=== PATIENT | male | born 1950 | race Caucasian/White ===

== ENCOUNTER 2016-08-26 18:59 | Emergency (ER) | payer BC, MEDICARE ==
--- NOTE | ~2016-08-26 | ER ---
PATIENT'S NAME: SUSANA [facility] AGE: 65 Y [address] ROOM: [place] [id number] LOCATION: [facility] ADMIT DATE: 08/26/2016 ER/Outpatient Report DISCHARGE DATE: FAMILY PHYSICIAN: Cordell Mccoy MD ATTENDING PHYSICIAN: Sesar Del Rosario TIME OF ARRIVAL: 1905 hours. TIME OF EVALUATION: 1905 hours. CHIEF COMPLAINT: Nosebleed. HISTORY OF PRESENT ILLNESS: The patient is a 65-year-old male who presents to the emergency department today with a chief complaint of nosebleed. He reports this started 15 minutes prior to arrival. It is from his left naris. He was discharged from the hospital about 2 weeks ago. He had been on some blood thinners during that time. He reports he sneezed and started bleeding from his nose. He denies any fevers or chills. No nausea or vomiting. No diarrhea or constipation. No chest pain. No shortness of breath. No pain. PAST MEDICAL HISTORY: Hypertension, asthma, recent pneumonia, and influenza A. PAST SURGICAL HISTORY: None reported. SOCIAL HISTORY: The patient denies any tobacco, alcohol, or illicit drug use. ALLERGIES: PENICILLIN. MEDICATIONS: 1. Symbicort. 2. Diovan. REVIEW OF SYSTEMS: All systems are reviewed by myself are negative with the exception of those discussed in HPI and past medical history. PHYSICAL EXAMINATION: PATIENT'S NAME: MALIK MEZA [facility] AGE: 65 Y [address] ROOM: [place] [address] LOCATION: [facility] ADMIT DATE: 08/26/2016 ER/Outpatient Report DISCHARGE DATE: FAMILY PHYSICIAN: Cordell Mccoy MD ATTENDING PHYSICIAN: Sesar Del Rosario VITAL SIGNS: Weight 112.5 kg, blood pressure 177/91, pulse 91, respiratory rate 18, temperature 97.9, and oxygen saturation 91% on room air. GENERAL: The patient is a 65-year-old male, appears stated age, in no acute distress at this time. HEENT: Head: Normocephalic, atraumatic. Pupils are equal, round, and reactive to light. The left naris with a small amount of bleeding noted with dried clots noted. Oropharynx is clear. There is no posterior pharyngeal bleed. NECK: Supple. There is no nuchal rigidity. CARDIOVASCULAR: Regular rate and rhythm. No murmurs, rubs, or gallops. LUNGS: Clear to auscultation bilaterally. No wheezes, rales, or rhonchi. ABDOMEN: Soft, nontender, and nondistended. No rebound, rigidity, or guarding. MUSCULOSKELETAL: The patient moves all 4 extremities. A 5/5 muscle strength. SKIN: Warm, dry. There are no rashes or lesions noted. LABS AND X-RAYS: None. IMPRESSION: 1. Left naris epistaxis. 2. Initial visit. EMERGENCY DEPARTMENT COURSE: The patient brought back to the examination room. Seen and evaluated by myself. The patient's naris explored. Afrin was instilled and pressure is held for 15 minutes. The left naris is once again explored and the bleeding does appear to be stopped at this time. I see no obvious vessel that is bleeding. The patient is observed here in the emergency department for some amount of time. He has not had any continued bleeding. I have discussed return to care instructions including worsening symptoms or any other concerns to return to the emergency department as soon as possible. The patient is to follow up with Dr. Mccoy in 2-3 days for reevaluation. The patient is agreeable, is agreeable, and they are without further questions at this time. DISPOSITION: The patient is discharged home in good condition. DO ANTONIA HUIZAR/mili PATIENT'S NAME: MALIK MEZA [facility] AGE: 65 Y [address] ROOM: [place], [place] [address] LOCATION: [facility] ADMIT DATE: 08/26/2016 ER/Outpatient Report DISCHARGE DATE: FAMILY PHYSICIAN: Cordell Mccoy MD ATTENDING PHYSICIAN: Sesar Del Rosario /[id number] d: 08/27/16 0019 t: 08/30/16 0604, OUTPATIENT REPORT
[~2016-08-26 18:59] MED LIST: ALBUTEROL2.5 MG/31 INH; AYR50 ML NOSE; DELTASONE20 M1 PO; HUMIBID LA (MU600 MG PO; SYMBICORT 16010.2 GM INH; TAMIFLU75 MG PO; TYLENOL EXTRA500 MG PO; VALSARTAN-HCTZ1 EAC1 PO
== END 2016-08-26 19:32 | disposition disaster alternative care site (69) ==
LOC: GMED 18:59
DX: R04.0 Epistaxis (principal); I10 Essential (primary) hypertension; Z87.01 Personal history of pneumonia (recurrent); Z86.19 Personal history of other infectious and parasitic diseases; Z88.0 Allergy status to penicillin; Z79.899 Other long term (current) drug therapy
CPT/HCPCS: A9270